=== PATIENT | female | born 1935 | race Caucasian/White ===

== ENCOUNTER 2018-05-30 14:58 | Outpatient (CLI) | payer MEDICARE, BC | END 2018-05-30 14:59 | disposition home or self-care (01) | LOC: BICMAMMO 14:58 | PROVIDERS: ATTEND Internal Medicine | DX: Z12.31 Encounter for screening mammogram for malignant neoplasm of breast (principal); Z85.038 Personal history of other malignant neoplasm of large intestine; Z85.9 Personal history of malignant neoplasm, unspecified | CPT/HCPCS: 77063; 77067 ==